=== PATIENT | female | born 2000 | race American Indian/Alaskan Native ===

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

== ENCOUNTER 2019-02-10 02:42 | Emergency (ER) | payer OTHER ==
--- NOTE | 2019-02-10 03:31 | Emergency Department Report ---
ED Abdominal Pain HPI - General Chief Complaint: Abdominal Pain Stated Complaint: NAUSEA/SIDE PAIN Time Seen by Provider: 02/10/19 03:27 Source: patient Mode of arrival: Ambulatory Limitations: No Limitations - History of Present Illness Initial Comments: Patient is 18 yo female, 2 para 1. c/o abdominal pain for 3 days. no vaginal bleeding or vaginal discharge. no fever or chills. MD Complaint: abdominal pain -: days(s) (3) Location: suprapubic Radiation: none Severity: moderate - Related Data Previous Rx's Medication Instructions Recorded Last Taken Type Nitrofurantoin Monohyd/M-Cryst 100 mg PO Q12H 7 Days #14 capsule 01/08/18 Unknown Rx [Macrobid 100 mg Capsule] Vit No.130/Iron/Folic 1 each PO QAM 30 Days #30 tablet 01/08/18 Unknown Rx [ Tablet] Allergies Allergy/AdvReac Type Severity Reaction Status Date / Time No Known Allergies Allergy Unverified 01/08/18 12:30 ED Review of Systems ROS: Stated complaint: NAUSEA/SIDE PAIN Other details as noted in HPI Comment: All other systems reviewed and negative Constitutional: denies: chills, fever Respiratory: denies: cough, shortness of breath, SOB with exertion Cardiovascular: denies: chest pain, palpitations Gastrointestinal: abdominal pain, nausea, vomiting. 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 - Social History Smoking Status: Never Smoker Substance Use Type: Alcohol, Marijuana - Medications Home Medications: Home Medications Medication Instructions Recorded Confirmed Last Taken Type Nitrofurantoin Monohyd/M-Cryst 100 mg PO Q12H 7 Days #14 capsule 01/08/18 Unknown Rx [Macrobid 100 mg Capsule] Vit No.130/Iron/Folic 1 each PO QAM 30 Days #30 tablet 01/08/18 Unknown Rx [ Tablet] ED Physical Exam - General Limitations: No Limitations General appearance: alert, in no apparent distress - Head Head exam: Present: atraumatic, normocephalic, normal inspection - Eye Eye exam: Present: normal appearance - ENT ENT exam: Present: normal exam, normal orophraynx, mucous membranes moist - Neck Neck exam: Present: normal inspection, full ROM. Absent: tenderness, meningismus, lymphadenopathy, thyromegaly - Respiratory Respiratory exam: Present: normal lung sounds bilaterally - Cardiovascular Cardiovascular Exam: Present: regular rate, normal rhythm, normal heart sounds - GI/Abdominal GI/Abdominal exam: Present: soft, normal bowel sounds. Absent: distended, tenderness, guarding, rebound, rigid, organomegaly, mass, bruit, pulsatile mass, hernia - Extremities Exam Extremities exam: Present: normal inspection, normal capillary refill. Absent: pedal edema, calf tenderness - Back Exam Back exam: Present: normal inspection, full ROM. Absent: CVA tenderness (R), CVA tenderness (L) - Neurological Exam Neurological exam: Present: alert, oriented X3, CN II-XII intact, normal gait, reflexes normal - Psychiatric Psychiatric exam: Present: normal mood - Skin Skin exam: Present: warm, intact, normal color ED Course Vital Signs 02/10/19 02/10/19 02/10/19 03:03 03:34 03:35 Temperature 99.2 F Pulse Rate 67 60 Respiratory 18 15 15 Rate Blood Pressure 108/54 Blood Pressure 108/44 [Left] O2 Sat by Pulse 95 96 96 Oximetry ED Medical Decision Making - Lab Data Result diagrams: 02/10/19 03:34 02/10/19 03:34 Critical care attestation.: If time is entered above; I have spent that time in minutes in the direct care of this critically ill patient, excluding procedure time. ED Disposition Clinical Impression: Abdominal pain affecting , Ovarian cyst Disposition: TO HOME OR SELFCARE Is pt being admited?: No Condition: Stable Instructions: Abdominal Pain (ED), Abdominal Pain in (ED), Ovarian Cyst (ED) Referrals: GINA STEVENSON MD [Primary Care Provider] - 3-5 Days [facility] [Provider Group] - 3-5 Days
[2019-02-10 03:38] LABS: Bilirubin,Urine NEG (Negative); Blood,Urine NEG (Negative); Color,Urine Yellow (Yellow); Mucus,Urine FEW /HPF; Protein,Urine <15 mg/dL mg/dL (Negative); Urobilinogen,Urine < 2.0 mg/dL (<2.0)
[2019-02-10 03:52] LABS: Basophils % (Auto) 0.5 % (0.0-1.8); Eosinophils # (Auto) 0.1 K/mm3 (0.0-0.4); Eosinophils % (Auto) 1.6 % (0.0-4.3); Hematocrit 32.6 % (30.3-42.9); Hemoglobin 10.8 gm/dl (10.1-14.3); Lymphocytes # (Auto) 1.6 K/mm3 (1.2-5.4); Lymphocytes % (Auto) 18.4 % (13.4-35.0); Mean Corpuscular HGB Conc 33 % (30-34); Mean Corpuscular Volume 83 fl (79-97); Monocytes # (Auto) 0.5 K/mm3 (0.0-0.8); Monocytes % (Auto) 6.1 % (0.0-7.3); Platelet Count 333 K/mm3 (140-440); Red Blood Count 3.95 M/mm3 (3.65-5.03); Red Cell Distribution Width 15.7 % (13.2-15.2)
[2019-02-10 03:53] LABS: HCG Qualitative,Urine Positive (Negative)
[2019-02-10 04:07] LABS: Alanine Aminotransferase 15 units/L (7-56); Albumin 3.9 g/dL (3.9-5); BUN/Creatinine Ratio 10; Blood Urea Nitrogen 6 mg/dL (7-17); Hemolysis Index 0
--- NOTE | 2019-02-10 05:45 | Ultrasound Report ---
Early obstetrical ultrasound INDICATION: , right lower quadrant pain for 2 days TECHNIQUE: Transabdominal and endovaginal COMPARISON: None recent FINDINGS: Uterus is strongly anteflexed and measures approximately 9 cm in length. Intrauterine gesta tional sac is seen in the fundus. Yolk sac and pole are noted. Estimated gestational age by microbiology technician wn-rump length is 7 weeks 0 days. Cardiac activity was documented with a heart rate of 118 bpm. Possible minimal implantational bleed is seen near the sac though this is not well defined. Right ovary measures 5 cm in length and shows a 3.8 cm simple cyst, probably a corpus luteum cyst. Le ft ovary measures 2.9 cm in length and shows no abnormalities. No free fluid is seen. IMPRESSION: 7 week 0 day intrauterine as above Signer Name: Lex Miranda MD Signed: 02/10/2019 5:40 AM Workstation Name: [id number]
--- NOTE | 2019-02-10 05:45 | Ultrasound Report ---
Early obstetrical ultrasound INDICATION: , right lower quadrant pain for 2 days TECHNIQUE: Transabdominal and endovaginal COMPARISON: None recent FINDINGS: Uterus is strongly anteflexed and measures approximately 9 cm in length. Intrauterine gesta tional sac is seen in the fundus. Yolk sac and pole are noted. Estimated gestational age by microstr[employer] bi developer wn-rump length is 7 weeks 0 days. Cardiac activity was documented with a heart rate of 118 bpm. Possible minimal implantational bleed is seen near the sac though this is not well defined. Right ovary measures 5 cm in length and shows a 3.8 cm simple cyst, probably a corpus luteum cyst. Le ft ovary measures 2.9 cm in length and shows no abnormalities. No free fluid is seen. IMPRESSION: 7 week 0 day intrauterine as above Signer Name: Lex Miranda MD Signed: 02/10/2019 5:40 AM Workstation Name: [id number]
[2019-02-10 06:00] VITALS: BP 110/68
== END 2019-02-10 06:18 | disposition home or self-care (01) ==
LOC: ED 02:42
DX: O34.81 Maternal care for other abnormalities of pelvic organs, first trimester (principal); N83.201 Unspecified ovarian cyst, right side; Z79.899 Other long term (current) drug therapy; Z3A.01 Less than 8 weeks gestation of pregnancy
CPT/HCPCS: 36415; 76801; 76817; 80053; 81001; 81025; 84702; 85025; 86900; 86901

== ENCOUNTER → 2020-11-08 23:12 | Emergency (ER) | payer OTHER | END | disposition left against medical advice (07) | LOC: ED 23:12 | DX: Z00.8 Encounter for other general examination (principal); Z53.21 Procedure and treatment not carried out due to patient leaving prior to being seen by health care provider ==

== ENCOUNTER 2021-02-10 08:53 | Outpatient (CLI) | payer OTHER, MEDICAID ==
[2021-02-10 09:37] VITALS: BP 110/59
[2021-02-10] MEDS ORDERED: LACTATED RINGERS 500 ML IV ONE (09:56)
[2021-02-10 10:28] LABS: Amorphous Crystals,Urine 3+; Bilirubin,Urine NEG (Negative); Blood,Urine NEG (Negative); Color,Urine Amber (Yellow); Mucus,Urine 1+ /HPF
== END 2021-02-10 11:50 | disposition home or self-care (01) ==
LOC: TRG 08:53 → APU 08:54 → TRG 11:50
PROVIDERS: ATTEND Obstetrics & Gynecology
DX: Z34.92 Encounter for supervision of normal pregnancy, unspecified, second trimester (principal); Z3A.26 26 weeks gestation of pregnancy
CPT/HCPCS: 59025; 81001